=== PATIENT | male | born 1970 | race Caucasian/White ===

== ENCOUNTER 2019-05-23 16:31 | Emergency (ER) | payer OTHER ==
[~2019-05-23] VITALS: Ht 180.3 cm; Wt 93.0 kg
[2019-05-23] MEDS ORDERED: TETRACAINE 0.5% OPHTH SOLUTION 4ML BOTTLE. OS STA (16:43)
[2019-05-23] MEDS ORDERED: FLUORESCEIN OPHTH TEST STRIP. OS ONE (16:45)
[2019-05-23 16:47] VITALS: BP 186/96
--- NOTE | 2019-05-23 16:48 | PHYS DOC ---
Adult General Chief Complaint Chief Complaint: FOREIGN BODY/EYES HPI HPI Patient is a 49 year old male presents with left foreign body sensation in his eye. The patient states this started about 2:00 PM when he was outside. Rates his pain as 4 out of 10 in severity and states this feels irritated. Denies wearing contacts. Review of Systems Review of Systems Constitutional: Denies fever or chills [] Eyes: Reports eye pain and redness to L eye with foreign body sensation. HENT: Denies nasal congestion or sore throat [] Respiratory: Denies cough or shortness of breath [] Cardiovascular: No additional information not addressed in HPI [] GI: Denies abdominal pain, nausea, vomiting, bloody stools or diarrhea [] : Denies dysuria or hematuria [] Musculoskeletal: Denies back pain or joint pain [] Integument: Denies rash or skin lesions [] Neurologic: Denies headache, focal weakness or sensory changes [] Endocrine: Denies polyuria or polydipsia [] Complete systems were reviewed and found to be within normal limits, except as documented in this note. Current Medications Current Medications Current Medications Medications (Trade) Dose Ordered Sig/Ludin Start Time Stop Time Status Last Admin Dose Admin Fluorescein Sodium (Ful-Abigail) 1 strip 1X ONCE 05/23/19 16:45 05/23/19 16:48 DC 05/23/19 16:57 1 STRIP Tetracaine HCl (Tetracaine) 1 drop 1X STAT 05/23/19 16:43 05/23/19 16:48 DC 05/23/19 16:57 1 DROP Allergies Allergies Allergies Coded Allergies Type Severity Reaction Last Updated Verified Penicillins Allergy Intermediate WAS TOLD A CHILD HE WAS ALLERGIC 05/23/19 Yes Physical Exam Physical Exam Constitutional: Well developed, well nourished, no acute distress, non-toxic appearance. [] HENT: Normocephalic, atraumatic, bilateral external ears normal, oropharynx moist, no oral exudates, nose normal. [] Eyes: PERRLA, EOMI, conjunctiva red in left eye, no discharge. Wood's lamp examination showed corneal abrasion upper left cornea with a foreign body on the upper eye lid. Neck: Normal range of motion, no tenderness, supple, no stridor. [] Skin: Warm, dry, no erythema, no rash. [] Back: No tenderness, no CVA tenderness. [] Extremities: No tenderness, no cyanosis, no clubbing, ROM intact, no edema. [] Neurologic: Alert and oriented X 3, normal motor function, normal sensory function, no focal deficits noted. [] Psychologic: Affect normal, judgement normal, mood normal. [] Current Patient Data Vital Signs Vital Signs Date Time Temp Pulse Resp B/P (MAP) Pulse Ox O2 Delivery O2 Flow Rate FiO2 05/23/19 16:47 97.9 92 20 186/96 (126) 96 Room Air 97.9 EKG EKG [] Radiology/Procedures Radiology/Procedures [] Course & Med Decision Making Course & Med Decision Making Pertinent Labs and Imaging studies reviewed. (See chart for details) Will do Wood's Lamp examination and order Fluorescein and Tetracaine. Wood's lamp examination showed a foreign body on the upper eye lid with a corneal abrasion. Removed with nursing assistance foreign body from eye. Nursing will irrigate eye. Will give Valium to expedite healing and let eye rest at night. Will also place on Erythromycin ointment. Gave return precautions and when to return. Dragon Disclaimer Dragon Disclaimer This electronic medical record was generated, in whole or in part, using a voice recognition dictation system. Departure Departure Impression: Primary Impression: Foreign body of eyelid, left Additional Impression: Corneal abrasion, left Disposition: 01 HOME, SELF-CARE Condition: STABLE Referrals: NO PCP (PCP) Patient Instructions: Eye - Corneal Abrasion, Eye - Corneal Foreign Body Additional Instructions: Thank you for visiting [facility]. We appreciate you trusting us with your care. If any additional problems come up don't hesitate to return to visit us. Please follow up with your primary care provider so they can plan additional care if needed and know about the problem that you had. If symptoms worsen come back to the Emergency Department. Any concerning symptoms that start such as chest pain, shortness of air, weakness or numbness on one side of the body, running high fevers or any other concerning symptoms return to the ER. You have been prescribed an antibiotic today to help fight your infection. Please take all of the antibiotic as directed. If after 48 hours the infection is not improving, please return for more care. If the infection worsens, return to ER for additional care. Scripts Diazepam (VALIUM) 5 Mg Tablet 5 MG PO HS for 2 Days, #2 TAB Please use at night to help eye rest. Prov: JRAEN FERNANDEZ APRN 05/23/19 Erythromycin Base (Erythromycin) 1 Gm Oint...g. 1 GM OP QID for 5 Days, MISC Please place 1/2 inch ribbon 4 times per day. Prov: JAREN FERNANDEZ APRN 05/23/19 Problem Qualifiers Additional Impression: Corneal abrasion, left Encounter type: initial encounter Qualified Codes: S05.02XA - Injury of conjunctiva and corneal abrasion without foreign body, left eye, initial encounter JAREN FERNANDEZ APRN May 23, 2019 16:48
[2019-05-23] MEDS ORDERED: DIAZ5TAB PO (17:13)
[2019-05-23] MEDS ORDERED: ERYT1OIN6 OP (17:13)
== END 2019-05-23 17:24 | disposition home or self-care (01) ==
LOC: ER 16:31
DX: S05.02XA Injury of conjunctiva and corneal abrasion without foreign body, left eye, initial encounter (principal); Z88.0 Allergy status to penicillin; X58.XXXA Exposure to other specified factors, initial encounter; Y93.89 Activity, other specified; Y92.89 Other specified places as the place of occurrence of the external cause; Y99.8 Other external cause status
CPT/HCPCS: 29125; 65222; 99284-25